=== PATIENT | female | born 1980 | race Caucasian/White ===

== ENCOUNTER → 2016-10-17 | Outpatient (CLI) | payer OTHER ==
[~2016-10-17] MED LIST: PREN-63
[2016-10-17 16:16] LABS: URINE APPEARANCE CLEAR (CLEAR); URINE BILIRUBIN NEG (NEG); URINE COLOR YELLOW; URINE EPITHELIAL CELL AUTO >30 /lpf (0-5); URINE NITRITE NEG (NEG); URINE SPECIFIC GRAVITY 1.006 (1.000-1.030); UROBILINOGEN NEG (NEG)
[2016-10-17 16:23] LABS: MANUAL MICROSCOPIC REQUIRED? NO; REVIEW REQ? NO
== END | disposition home or self-care (01) ==
LOC: C.LABSPEC 15:48
PROVIDERS: ATTEND Obstetrics & Gynecology
DX: Z34.90 Encounter for supervision of normal pregnancy, unspecified, unspecified trimester (principal)

== ENCOUNTER → 2016-10-27 | Outpatient (CLI) | payer OTHER ==
[2016-10-27 11:46] LABS: BASO % 0.3 %; BASO ABS # 0.02 K/uL (0-0.2); COMPLETE YES; EOS % 0.3 %; HEMATOCRIT 34.5 % (37-47); IG% 0.3 %; LYMPH % 21.2 %; LYMPH ABS # 1.34 K/uL (1.2-3.4); MEAN CELL VOLUME 85.6 fL (80-100); MEAN CORPUSCULAR HEMOGLOBIN 29.3 pg (25-34); MEAN CORPUSCULAR HGB CONC 34.2 g/dl (32-36); MEAN PLATELET VOLUME 9.8 fL (7.4-10.4); MONO % 6.6 %; NEUT % 71.3 %; PLATELET COUNT 278 K/uL (130-400); RED BLOOD COUNT 4.03 M/uL (4.2-5.4); WHITE BLOOD COUNT 6.33 K/uL (4.8-10.8)
== END | disposition home or self-care (01) ==
LOC: C.LAB1850 10:03
PROVIDERS: ATTEND Obstetrics & Gynecology
DX: Z34.90 Encounter for supervision of normal pregnancy, unspecified, unspecified trimester (principal)

== ENCOUNTER → 2016-10-27 | Outpatient (CLI) | payer OTHER ==
[2016-10-30 02:49] LABS: CHLAMYDIA TRACH RNA*** NOT DETECTED (NOT DETECTED); GC (NEIS GONORRHOEAE)RNA** NOT DETECTED (NOT DETECTED)
== END | disposition home or self-care (01) ==
LOC: C.LABSPEC 17:48
PROVIDERS: ATTEND Obstetrics & Gynecology
DX: Z34.90 Encounter for supervision of normal pregnancy, unspecified, unspecified trimester (principal)

== ENCOUNTER → 2016-12-16 | Outpatient (CLI) | payer OTHER ==
[2016-12-16 12:09] LABS: GTGD 50 Grams
[2016-12-19 16:11] LABS: AFP CONCENTRATION 37.6 NG/ML; AFP MULTIPLE OF MEDIAN 0.92; AFPTS GESTATIONAL AGE 16.3 WEEKS; AFPTS INSULIN DEP DIABETIC? NO; AFPTS MATERNAL WT 115 LBS; ALPHA-FETOPROTEIN RACE CAUCASIAN=W; HISTORY OF NTD NO; INHIBIN A 116 PG/ML; REPEAT SAMPLE? NO; hCG MULTIPLE OF MEDIAN 0.57
== END | disposition home or self-care (01) ==
LOC: C.LAB1850 10:02
PROVIDERS: ATTEND Obstetrics & Gynecology
DX: Z34.82 Encounter for supervision of other normal pregnancy, second trimester (principal)

== ENCOUNTER → 2017-03-08 | Outpatient (CLI) | payer OTHER ==
[2017-03-08 11:54] LABS: URINE APPEARANCE CLEAR (CLEAR); URINE BILIRUBIN NEG (NEG); URINE COLOR YELLOW; URINE EPITHELIAL CELL AUTO >30 /lpf (0-5); URINE NITRITE NEG (NEG); URINE SPECIFIC GRAVITY 1.011 (1.000-1.030); UROBILINOGEN NEG (NEG)
[2017-03-08 11:55] LABS: MANUAL MICROSCOPIC REQUIRED? NO; REVIEW REQ? NO
[2017-03-08 12:14] LABS: HEMATOCRIT 31.6 % (37-47)
[2017-03-08 14:33] LABS: GTGD 50 Grams
== END | disposition home or self-care (01) ==
LOC: C.LAB1850 09:10
PROVIDERS: ATTEND Obstetrics & Gynecology
DX: Z34.82 Encounter for supervision of other normal pregnancy, second trimester (principal)

== ENCOUNTER → 2017-05-05 | Outpatient (CLI) | payer OTHER | END | disposition home or self-care (01) | LOC: C.LABSPEC 17:40 | PROVIDERS: ATTEND Obstetrics & Gynecology | DX: Z34.83 Encounter for supervision of other normal pregnancy, third trimester (principal) ==

== ENCOUNTER 2017-05-24 13:46 | Inpatient (IN) | payer OTHER ==
[~2017-05-24] VITALS: Ht 162.6 cm; Wt 63.7 kg
[2017-05-24] MEDS ORDERED: PREN-63 (14:17)
[2017-05-24 15:04] VITALS: Ht 162.6 cm; Wt 63.7 kg
[2017-05-24] MEDS ORDERED: LACTATED RINGER'S 1000ML 1,000 ML IV SCH (16:31)
[2017-05-24] MEDS ORDERED: LACTATED RINGER'S 1000ML 1,000 ML IV PRN (16:31)
[2017-05-24 17:14] LABS: HEMATOCRIT 32.7 % (37-47); MEAN CORPUSCULAR HEMOGLOBIN 30.1 pg (25-34); MEAN CORPUSCULAR HGB CONC 34.6 g/dl (32-36); MEAN PLATELET VOLUME 9.8 fL (7.4-10.4); PLATELET COUNT 181 K/uL (130-400); RED BLOOD COUNT 3.76 M/uL (4.2-5.4); WHITE BLOOD COUNT 9.23 K/uL (4.8-10.8)
[2017-05-24] MEDS ORDERED: BUPIVACAINE 0.25% 30 ML VIAL ONE (17:16)
[2017-05-24] MEDS ORDERED: EpHEDrine SULFATE INJ 50 MG/ML AMP ONE (17:16)
[2017-05-24] MEDS ORDERED: FENTANYL 2MCG/ML ROPIV 1.25MG/ML 100ML BAG EPI ONE (17:17)
[2017-05-24] MEDS ORDERED: FENTANYL CITRATE INJ 50 MCG/1 ML 2 ML VIAL ONE (17:17)
[2017-05-24] MEDS ORDERED: NALOXONE HCL INJ 1 MG in SODIUM CHLORIDE 0.9% 1000ML 1,000 ML IV PRN ×4 (18:14)
[2017-05-24] MEDS ORDERED: LACTATED RINGER'S 1000ML 500 ML IV PRN (18:14)
[2017-05-24] MEDS ORDERED: NALBUPHINE HCL INJ 10 MG/ML AMP IV PRN (18:15)
[2017-05-24] MEDS ORDERED: DiphenhydrAMINE HCL 50 MG/ML VIAL IV PRN (18:15)
[2017-05-24] MEDS ORDERED: EpHEDrine SULFATE INJ 50 MG/ML AMP IV PRN (18:15)
[2017-05-24] MEDS ORDERED: PROMETHAZINE HCL INJ 25 MG in SODIUM CHLORIDE 0.9% 50ML 50 ML IV PRN (18:15)
[2017-05-24] MEDS ORDERED: ONDANSETRON INJ 2 MG/ML 2 ML VIAL IV PRN (18:15)
[2017-05-24] MEDS ORDERED: FENTANYL 2MCG/ML ROPIV 1.25MG/ML 100ML BAG EPI PRN (18:15)
[2017-05-24] MEDS ORDERED: NALOXONE HCL INJ 0.4 MG/1 ML VIAL/CARP IV PRN (18:15)
[2017-05-24] MEDS ORDERED: OXYTOCIN 30 UNITS/500ML NSS IV ONE (19:38)
[2017-05-24] MEDS ORDERED: ACETAMINOPHEN 325 MG TAB PO PRN (20:00)
[2017-05-24] MEDS ORDERED: DIPHTHERIA/TETANUS/PERTUSSIS 0.5 ML SYR/VIAL IM. ONE (20:00)
[2017-05-24] MEDS ORDERED: OXYTOCIN 30 UNITS/500ML NSS IV PRN (20:00)
[2017-05-24] MEDS ORDERED: BENZOCAINE 20% AER SPR 82.5 GM CAN EXT PRN (20:00)
[2017-05-24] MEDS: DOCUSATE SODIUM 100 MG CAP PO SCH (20:00)
[2017-05-24] MEDS ORDERED: LANOLIN OINT EXT PRN ×2 (20:00)
[2017-05-24] MEDS ORDERED: MISOPROSTOL 200 MCG TAB PR SCH (20:00)
[2017-05-24] MEDS ORDERED: HYDROCORTISONE ACETATE 25 MG SUPP PR PRN (20:00)
[2017-05-24] MEDS ORDERED: SUPERCREAM 0.870 % 15GM JAR EXT PRN (20:00)
[2017-05-24] MEDS ORDERED: ACETAMINOPHEN/CODEINE 300/30MG TAB PO PRN ×2 (20:00)
--- NOTE | 2017-05-24 20:04 | Vaginal Delivery Summary ---
Vaginal Delivery Summary Patient dilated to complete and pushed to deliver viable male Apgars 9, 10 via over 2nd degree perineal laceration. Mouth and nose bulb suctioned at perineum. Loose nuchal cord x 1 easily reduced at perineum. Shoulders and body delivered with ease. vigorous and crying at . Placenta delivered spontaneously and intact, 3 VC. Hemostasis not achieved with dilute pitocin and uterine massage. Therefore, bladder drained under sterile conditions for 100cc. Rectal cytotec 800mcg administered. Uterine tone improved and bleeding improved. Uterus was swept x 1 with no retained products of conception. Laceration repaired in usual fashion with 3-0 vicryl. Cervix and sulci intact. Mother and baby stable in recovery. EBL 500cc.
[2017-05-24] MEDS: OXYTOCIN INJ 20 UNITS in LACTATED RINGER'S 1000ML 1,000 ML IV SCH (20:15)
--- NOTE | 2017-05-24 21:26 | Anesthesia Procedure Note ---
Anesthesia Epidural Removal Nt Date & Time May 24, 2017 at 21:26 Vital Signs Pain Intensity: 0.0 Notes Mental Status: alert / awake / arousable, participated in evaluation Nausea / Vomiting: adequately controlled Pain: adequately controlled Airway Patency, RR, SpO2: stable & adequate BP & HR: stable & adequate Hydration State: stable & adequate Neuraxial Anesthesia: was administered Anesthetic Complications: no major complications apparent, pt satisfied with anesthetic care Epidural: removed without complications, with tip intact
[2017-05-24] MEDS: IBUPROFEN 600 MG TAB PO PRN (22:01)
[2017-05-24 23:00] VITALS: BP 121/81; PULSE 89; TEMP 37.2; O2SAT 98
[2017-05-25] MEDS: IBUPROFEN 600 MG TAB PO PRN ×3 (03:10→19:44)
[2017-05-25 03:20] VITALS: BP 106/70; PULSE 75; TEMP 37.1; O2SAT 99
[2017-05-25] MEDS: OXYTOCIN INJ 20 UNITS in LACTATED RINGER'S 1000ML 1,000 ML IV SCH (04:58)
--- NOTE | 2017-05-25 06:43 | OB/GYN Progress Note ---
PAINTER APPRENTICE Progress Note Date of Service May 25, 2017. Subjective conversation w/ patient, physical exam, chart review, lab review Ambulation: ambulating normally Voiding: no voiding problems Passing Gas: Yes Diet Tolerance: Regular Diet Lochia: Moderate Feeding Type: Breast Feeding Review of Systems Respiratory: No shortness of breath Cardiac: No chest pain Abdomen: No nausea, No vomiting Objective Vital Signs Date Time Temp Pulse Resp B/P (MAP) Pulse Ox O2 Delivery O2 Flow Rate FiO2 05/25/17 03:20 37.1 75 18 106/70 (82) 99 Room Air 05/24/17 23:00 98 Room Air 05/24/17 23:00 37.2 89 20 121/81 (94) 98 Room Air Physical Exam General Appearance: WELL-APPEARING, WD/WN, NO APPARENT DISTRESS Respiratory/Chest: lungs clear, normal breath sounds Cardiovascular: regular rate, rhythm, no gallop, no JVD Abdomen: normal bowel sounds, soft Fundus: Firm, Tender, Relation to Umbilicus (1 below U) Extremities: non-tender, no calf tenderness Laboratory Results Last 24 Hours Test 05/24/17 17:06 05/25/17 06:30 White Blood Count 9.23 K/uL Red Blood Count 3.76 M/uL Hemoglobin 11.3 g/dL Hematocrit 32.7 % Mean Corpuscular Volume 87.0 fL Mean Corpuscular Hemoglobin 30.1 pg Mean Corpuscular Hemoglobin Concent 34.6 g/dl RDW Standard Deviation 44.5 fL RDW Coefficient of Variation 14.0 % Platelet Count 181 K/uL Mean Platelet Volume 9.8 fL Assessment and Plan Post- Day Number: 1 Continue Routine Care: Pt is doing well clinically. - VS reviewed and WNL. - Hgb 11.3 - Blood type AB negative /GBS negative - Encourage ambulation, monitor and control pain with Motrin PRN, continue regular diet, monitor lochia - Continue support - Pt refused Rhogam at 28 weeks. Father blood type is NEG per pt, so Rhogam not indicated at this time. Dr. Miller PGY 1 Resident Physician Supervision Note: I was present with Dr. Rosenthal during the history and exam. I discussed the case with the resident and agree with the findings and plan as documented in the note. Any exceptions or clarifications are listed here: wants to stay until tomorrow. routine care. Documented By: Jailyn Walton Resident Tracking Resident Involvement: Resident Care Provided Care Provided: Adult [facility] Medicine
[2017-05-25 06:54] LABS: HEMATOCRIT 25.8 % (37-47)
--- NOTE | 2017-05-25 07:13 | Discharge Instructions ---
Discharge Instructions Date of Service May 25, 2017. Admission Reason for Admission: Active Labor At Term Discharge Discharge Diagnosis / Problem: Delivery Discharge Goals Goal(s): Routine recovery after delivery Medications Continue Dispensed Medications: supercream, dermaplast, tucks, lansinoh Activity Recommendations Activity Limitations: per Instructions/Follow-up section . Instructions / Follow-Up Instructions / Follow-Up ACTIVITY RECOMMENDATIONS: * Gradual return to full activity over the next 2-3 weeks. * No lifting - nothing heavier than baby over the next 2-3 weeks. * Do not engage in vigorous exercise, sexual activity or sports until cleared by your physician. * Do not drive or operate any motorized equipment until cleared by your physician. * You may shower/bathe daily. MEDICATIONS: For discomfort or pain, you may use Acetaminophen (Tylenol), Ibuprofen (Advil), or Naproxen (Aleve) following the package directions. For constipation you may use Colace following the package directions. BREAST CARE: If you are not breast feeding: * Wear a supportive bra 24 hours a day for one to two weeks. * Avoid stimulating your breasts and nipples as much as possible during the first few weeks after delivery. * When taking a shower, have the warm water hit your back, not breasts. * When your breasts feel full, apply ice packs. Usually three to four times a day helps ease the discomfort. * Take a mild pain medication (Tylenol / Motrin) when you are uncomfortable. If breast feeding: * Use breast milk to lubricate nipples. Lansinoh cream may be used for sore nipples. You do not need to remove cream prior to breast feeding. If using a different brand of cream, check the label for directions regarding removal of cream prior to nursing. * Wear a supportive bra. * If having problems with breasts or breast feeding, call a ruby on rails consultant or your health care provider. EPISIOTOMY CARE: After delivery, if you have an episiotomy (stitches), the following steps will ease discomfort and aid healing. * For the first 24 hours after delivery, place ice packs next to your episiotomy to help reduce swelling. * After the first 24 hour-period, sitz baths, either portable or in the tub, are suggested. A shower with a shower arm sprayed over the episiotomy may be comforting. * Heather care should be done after each voiding and bowel movement. Squirt warm water from a plastic bottle over the perineum (region of the body between the anus and urinary opening) and pat dry. * Use Dermoplast to ease discomfort. Shake container. [place] directly over the episiotomy. Place a Tucks on a clean sanitary pad next to your episiotomy. SPECIAL CARE INSTRUCTIONS: When you are discharged from the hospital, it is important for you to follow the instructions listed below: * During the first week at home, you should be able to care for yourself and your baby. In addition, the usual light household activities are encouraged. * Limit your activities to the way you feel. Do not try to clean the house or move furniture. Be sensible. * If you actively engage in sports and have done so up until the time of your delivery, you may resume these activities as soon as you feel able. This may take up to one month or even longer. Use good judgment. * Continue to take your vitamins for at least six weeks after the of your baby. * Your diet need not be limited unless you were on a special diet before your delivery. Breast-feeding mothers need around 2500 calories per day and at least 64-80 ounces of fluid per day (8 to 10 glasses). * You should eat foods from the four major food groups. Crash diets or fad diets are to be avoided. Eating lean meats, fresh fruits and vegetables, low-fat dairy products, high fiber foods and a regular exercise program, will help you get back to your pre- weight without putting your health at risk. * Constipation is sometimes a problem after delivery. Take a mild laxative as needed. If breast feeding, Milk of Magnesia is acceptable to use. You may use a suppository or Fleets enema if no episiotomy. * A daily shower or tub bath is suggested. Be sure to thoroughly and gently dry the perineum. * A bloody vaginal discharge will usually continue until around four weeks post . A small amount of bleeding may continue for as long as six weeks. Vaginal discharge changes from the bright red bleeding after delivery to pink then brownish and finally yellowish-pink before becoming white and disappearing. * Bleeding may increase with activity. Your first period may come in 4-8 weeks. If you are breast feeding, your period may be delayed even longer. * Briar (sex) can begin whenever both you and your partner feel comfortable and do not have any form of genital infection. It is recommended that you wait at least six weeks for internal and external healing to occur. If you have questions, please talk to your health care practitioner. A condom should be used to prevent infection and . * Foreplay, gentle intercourse and lubrication is very important the first several times to prevent pain. A water-based lubricant such as K-Y jelly or Astroglide may be used. * If you have RH negative blood and your baby is RH positive, you will receive RHOGAM by injection prior to discharge. The nurse will give you a card to keep with you that has the date and place that you received RHOGAM after delivery. * During your care, you had a Rubella screen done to check for the presence of rubella antibodies in your blood. If your test was negative, you will receive a Rubella vaccine prior to discharge. This vaccine may cause a fever, soreness at the injection site and flu-like symptoms. If these symptoms persist, notify your health care practitioner. is not advised for one month after a Rubella vaccine. * Verbalizes understanding of car seat law as reviewed with patient nursing. * Car Seat hand-out given and reviewed with patient by nursing. * Shaken baby information reviewed with patient by nursing. Call you doctor if: * Heavy bleeding (saturating several pads an hour) or passing clots the size of your fist. * A fever >101 degrees F (38.3 degrees C) on two occasions four hours apart and /or chills. * Unusual pain in the pelvic or vaginal areas. * "Baby Blues" lasting longer than two weeks. If you have any questions or concerns, call your health care practitioner at . FOLLOW UP VISIT: * Please call the office at to schedule a 6 week examination. It is important you keep this appointment. It is important for you to make arrangements for either yearly or twice yearly check-ups thereafter. Current Hospital Diet Patient's current hospital diet: Regular OB Diet Discharge Diet Recommended Diet: Regular Diet Pending Studies Studies pending at discharge: no Medical Emergencies . Who to Call and When: Medical Emergencies: If at any time you feel your situation is an emergency, please call 911 immediately. . Non-Emergent Contact Non-Emergency issues call your: Primary Care Provider . . "Provider Documentation" section prepared by Leny Miller. . VTE Core Measure Inpt VTE Proph given/why not?: Treatment not indicated Resident Tracking Resident Involvement: Resident Care Provided Care Provided: Adult Hospital Medicine
[2017-05-25] MEDS: DOCUSATE SODIUM 100 MG CAP PO SCH ×2 (08:09→19:44)
[2017-05-25 08:20] VITALS: BP 118/76; PULSE 75; TEMP 36.6
[2017-05-25 12:45] VITALS: BP 108/70; PULSE 69; TEMP 36.5
[2017-05-25 16:00] VITALS: BP 117/76; PULSE 69; TEMP 36.9; O2SAT 99
[2017-05-25 19:15] VITALS: BP 106/67; PULSE 69; TEMP 36.9; O2SAT 99
[2017-05-26 00:05] VITALS: BP 102/64; PULSE 78; TEMP 36.8; O2SAT 97
[2017-05-26] MEDS: IBUPROFEN 600 MG TAB PO PRN (05:47)
[2017-05-26] MEDS: DOCUSATE SODIUM 100 MG CAP PO SCH (07:28)
--- NOTE | 2017-05-26 07:44 | OB/GYN Progress Note ---
EXERCISE PHYSIOLOGIST CERTIFIED Progress Note Date of Service May 26, 2017. Subjective conversation w/ patient, physical exam, chart review, lab review Ambulation: ambulating normally Voiding: no voiding problems Passing Gas: Yes Diet Tolerance: Regular Diet Lochia: Moderate Feeding Type: Breast Feeding Pain: controlled Review of Systems Respiratory: No shortness of breath Cardiac: No chest pain Abdomen: No nausea, No vomiting Female : No dysuria Objective Vital Signs Date Time Temp Pulse Resp B/P (MAP) Pulse Ox O2 Delivery O2 Flow Rate FiO2 05/26/17 00:05 97 Room Air 05/26/17 00:05 36.8 78 20 102/64 (77) 97 Room Air 05/25/17 19:15 36.9 69 16 106/67 (80) 99 Room Air 05/25/17 16:00 99 Room Air 05/25/17 16:00 36.9 69 20 117/76 (90) 99 Room Air 05/25/17 12:45 36.5 69 20 108/70 (83) 05/25/17 08:20 36.6 75 16 118/76 (90) Physical Exam General Appearance: WELL-APPEARING, WD/WN, NO APPARENT DISTRESS Respiratory/Chest: lungs clear, no respiratory distress Cardiovascular: regular rate, rhythm Abdomen: normal bowel sounds, soft Fundus: Firm, Tender (appropriately tender uterus), Relation to Umbilicus (2 below U) Extremities: non-tender, no calf tenderness Laboratory Results Last 24 Hours Test 05/25/17 16:17 Bedside Glucose 105 mg/dl Assessment and Plan Post- Day Number: 2 Continue Routine Care: - Vital Signs reviewed and WNL. - Blood Type: AB-, GBS-, Rubella Immune. is Rh-, no indication for rhogam at this time. - Pt is doing well clinically. - Encourage Ambulation, Monitor and Control pain with Motrin PRN, Resume regular diet, Monitor Lochia - Encourage Breast Feeding. - Pt counselled on discharge instructions FAROOQ MILLER PGY1 FMR Resident Physician Supervision Note: I interviewed and examined the patient. Discussed with Dr. Miller and agree with findings and plan as documented in the note. Any exceptions or clarifications are listed here: Nursing shows me a small bruise on the left buttock. Not related to her perineum, not connected either. Reassured patient. Plan d/c. INstructions given. Documented By: Drea Lamb Resident Tracking Resident Involvement: Resident Care Provided Care Provided: OB Delivery
[2017-05-26 08:00] VITALS: BP 101/66; PULSE 87; TEMP 36.9
[2017-05-26 13:32] VITALS: BP_DIAS 66; PULSE 87; TEMP 36.9
== END 2017-05-26 13:00 | disposition home or self-care (01) | DRG 775 ==
LOC: C.OPB 13:46 → C.LD 13:47 → C.OPB 16:57 → C.OBG 05-25 01:20
PROVIDERS: ADMIT Obstetrics & Gynecology; ATTEND Obstetrics & Gynecology
PROC: 0KQM0ZZ Repair Perineum Muscle, Open Approach (ICD-10-PCS; principal; 2017-05-24)
PROC: 10E0XZZ Delivery of Products of Conception, External Approach (ICD-10-PCS; principal; 2017-05-24)
DX: O36.0930 Maternal care for other rhesus isoimmunization, third trimester, not applicable or unspecified (principal); O09.893 Supervision of other high risk pregnancies, third trimester; O69.81X0 Labor and delivery complicated by cord around neck, without compression, not applicable or unspecified; O70.1 Second degree perineal laceration during delivery; Z3A.39 39 weeks gestation of pregnancy; Z37.0 Single live birth

== ENCOUNTER → 2017-07-10 | Outpatient (CLI) | payer OTHER | END | disposition home or self-care (01) | LOC: C.PAPS 08:58 | PROVIDERS: ATTEND Obstetrics & Gynecology | DX: Z12.4 Encounter for screening for malignant neoplasm of cervix (principal) ==

== ENCOUNTER 2019-08-05 18:23 | Inpatient (IN) ==
[2019-08-05] MEDS ORDERED: LACTATED RINGER'S 1,000 ML IV PRN (22:44)
[2019-08-05] MEDS ORDERED: OXYTOCIN 30 UNITS/500 ML BAG IV PRN (22:44)
[2019-08-05 23:05] LABS: Hematocrit (blood only) 32.8 % (37-47); Hemoglobin 11.2 g/dL (12.0-16.0); Mean Corpuscular Hemoglobin 29.7 pg (25-34); Mean Platelet Volume 9.4 fL (7.4-10.4); Platelet Count 172 K/uL (130-400); RDW Coefficient of Variation 14.7 % (11.5-14.5); RDW Standard Deviation 46.5 fL (36.4-46.3); Red Blood Count 3.77 M/uL (4.2-5.4); White Blood Count 10.54 K/uL (4.8-10.8)
[2019-08-05 23:22] LABS: Mean Corpuscular Hgb Conc 34.1 g/dL (32-36)
[2019-08-05] MEDS ORDERED: CALCIUM CARBONATE 500 MG CHEWABLE TAB PO ONE (23:23)
[2019-08-05] MEDS ORDERED: fentaNYL citrate 100 MCG/2 ML VIAL ONE (23:42)
[2019-08-05] MEDS ORDERED: BUPIVACAINE 0.25% 30 ML VIAL ONE (23:42)
[2019-08-05] MEDS ORDERED: ePHEDrine sulfate 50 MG/ML AMP ONE (23:42)
[2019-08-05] MEDS ORDERED: fentaNYL 2MCG/ML ROPIV 1.25MG/ML 100 ML BAG EPI ONE (23:43)
[2019-08-06] MEDS ORDERED: DiphenhydrAMINE HCL 50 MG/ML VIAL IV PRN (00:32)
[2019-08-06] MEDS ORDERED: fentaNYL 2MCG/ML ROPIV 1.25MG/ML 100 ML BAG EPI PRN (00:32)
[2019-08-06] MEDS ORDERED: ePHEDrine sulfate 50 MG/ML AMP IV PRN (00:32)
[2019-08-06] MEDS ORDERED: NALOXONE HCL 1 MG in SODIUM CHLORIDE 0.9% 1000ML 1,000 ML IV PRN (00:32)
[2019-08-06] MEDS ORDERED: NALBUPHINE HCL INJ 10 MG/ML AMP IV PRN (00:32)
[2019-08-06] MEDS ORDERED: NALOXONE HCL 0.4 MG/1 ML VIAL/CARP IV PRN (00:32)
--- NOTE | 2019-08-06 00:37 | History & Physical Report ---
Date of Service August 06, 2019 Assessment & Plan (1) Supervision of elderly multigravida: (2) Rh negative status during : (3) Active labor at term: admit, iv, labs. epidural, will see how arom augments labor. History of Present Illness Chief Complaint: regular ctx Primary Care Provider: Charlette Abraham MD 38yo at 39 wks ega with above cc. Was initially thinking she was leaking fluid but that was not confirmed. Contractions increased with time and cervix changed from 3-4cm to 5-6cm and admitted in labor. Desired epidural. No rom. c/b 1. ama , low risk panorama 2. rh neg, spouse rh neg, does not accept rhogam Labs rh neg, ri, gbs neg obh: x 2 gynh: no stds, nl paps pmh: neg psh: wisdom teeth Allergies Allergy/AdvReac Type Severity Reaction Status Date / Time erythromycin base AdvReac Intermediate RASH Verified 08/01/19 09:43 Home Medications Home Medications Medication Instructions Recorded Confirmed Type 1 tab PO DAILY 05/03/19 08/05/19 History vitamin,calcium,trawrale-acqd-vecve acid tablet hydrocortisone acetate 25 mg 25 mg WI BID #1 ea 08/01/19 08/05/19 Rx rectal suppository Patient History Medical History History of placenta previa Surgical History History of wisdom tooth extraction Family History Daughter [place]-McDermid [id number] deletion syndrome Social History Preferred Language: [place] Communication Ability: Effective Beliefs That Will Affect Care: None marital status: Current Living Situation: Family Other Information That Helps Us Care for You: No Feels Safe at Home: Yes Safety Concerns: Feels Safe At This Time Smoking Status: Never smoker Do You Dip or Chew Tobacco: No ; Second Hand Exposure: No ; Hx Alcohol Use: No Hx Substance Use: No Physical Exam Constitutional: WD/WN, vitals as above Gastrointestinal (Abdomen): Percussion/Palpation: abdomen soft (gravid); abdomen nontender Neurologic: grossly normal Psychiatric: A+Ox3, euthymic affect Genitourinary: Manual OB Exam: + cervical dilation 5 cm, + cervical effacement 70%, + station -2 and + amniotic fluid (clear arom) OB Exam Monitor Tracing: + external FHT monitor used (130 mod variability, reactive), + external uterine monitor used (q3), + category I and + normal FHT variability Results & Data Vital Signs (Past 12 Hours) Vital Signs Temp Pulse Resp BP Pulse Ox 08/06/19 00:32 110 H 120/67 08/06/19 00:31 104 H 112/66 96 08/06/19 00:29 104 H 120/75 08/06/19 00:27 103 H 119/72 08/06/19 00:26 105 H 97 08/06/19 00:25 102 H 121/72 08/06/19 00:23 100 H 124/74 08/06/19 00:21 109 H 118/72 96 08/06/19 00:19 100 H 120/73 08/06/19 00:17 96 H 124/72 08/06/19 00:16 110 H 97 08/06/19 00:11 118 H 96 08/06/19 00:06 103 H 96 08/06/19 00:01 95 H 97 08/05/19 23:17 93 H 118/74 08/05/19 23:01 98.6 F 18 08/05/19 19:01 18 08/05/19 18:54 91 H 132/82 08/05/19 18:35 98.4 F 20
--- NOTE | 2019-08-06 00:45 | Anesthesiology Consultation ---
Date of Service August 06, 2019 Assessment & Plan Chart Review Chart Review: Acceptable Risk for Labor Epidural Consults Requested none History Height/Weight Height: 5 ft 5 in Weight: 68.946 kg Allergies Allergy/AdvReac Type Severity Reaction Status Date / Time erythromycin base AdvReac Intermediate RASH Verified 08/01/19 09:43 Medications Home Medications Medication Instructions Recorded Confirmed Last Taken 1 tab PO DAILY 05/03/19 08/05/19 08/04/19 15:00 vitamin,calcium,paogzqvd-btzo-wsoic acid tablet hydrocortisone acetate 25 mg 25 mg [place] BID #1 ea 08/01/19 08/05/19 08/04/19 15:00 rectal suppository Active Medications Generic Name Dose Route Start Last Admin Trade Name Freq PRN Reason Stop Dose Admin Lactated Ringer's 1,000 mls @ 125 mls/hr 08/05/19 22:44 08/05/19 23:07 Lr IV 08/07/19 22:43 999 mls/hr .Q8H PRN Administration L&D Protocol Protocol Past Medical History Medical History History of placenta previa Past Family History Family History Daughter [place]-McDermid 22q13 deletion syndrome Past Surgical History Surgical History History of wisdom tooth extraction Social History Smoking Status: Never smoker Do You Dip or Chew Tobacco: No Hx Alcohol Use: No Hx Substance Use: No Physical Exam Vital Signs Last Vital Signs Temp 37.0 C 08/05/19 23:01 Pulse 96 H 08/06/19 00:42 Resp 18 08/05/19 23:01 BP 118/76 08/06/19 00:42 Pulse Ox 97 08/06/19 00:41 Testing Laboratory Results 08/05/19 22:56
[2019-08-06] MEDS ORDERED: IBUPROFEN 600 MG TAB PO ONE (03:18)
[2019-08-06] MEDS ORDERED: OXYTOCIN 20 UNITS in LACTATED RINGER'S 1,000 ML IV PRN (04:43)
[2019-08-06] MEDS ORDERED: BENZOCAINE 20% AER SPR 82.5 GM CAN EXT PRN (04:45)
[2019-08-06] MEDS ORDERED: HYDROCORTISONE ACETATE 25 MG SUPP PR PRN (04:45)
[2019-08-06] MEDS ORDERED: BISACODYL 10 MG SUPP PR PRN ×2 (04:45→05:28)
[2019-08-06] MEDS ORDERED: SUPERCREAM 0.870% 15 GM JAR EXT PRN (04:45)
[2019-08-06] MEDS ORDERED: ACETAMINOPHEN 325 MG TAB PO PRN (04:45)
[2019-08-06] MEDS ORDERED: OXYCODONE/ACETAMINOPHEN 5mg/325mg TAB PO PRN (04:45)
[2019-08-06 06:10] LABS: Hematocrit (blood only) 30.5 % (37-47); Hemoglobin 10.4 g/dL (12.0-16.0)
[2019-08-06] MEDS: PRENATAL VITAMIN 1 TAB PO SCH (07:32)
[2019-08-06] MEDS: DOCUSATE SODIUM 100 MG CAP PO SCH ×2 (07:32→20:04)
[2019-08-06] MEDS: IBUPROFEN 600 MG TAB PO PRN ×3 (07:32→20:03)
--- NOTE | 2019-08-06 11:40 | Anesthesia Procedure Note ---
Date of Service August 06, 2019 Anesthesia Post Epidural Note Vital Signs Vital Signs: Temp Pulse Resp BP Pulse Ox 98.2 F 83 18 111/69 96 08/06/19 08:00 08/06/19 08:00 08/06/19 08:00 08/06/19 08:00 08/06/19 08:00 Pain Intensity Bilateral Abdomen: Pain Intensity: 4 Notes Mental Status: alert / awake / arousable and participated in evaluation Nausea / Vomiting: adequately controlled Pain: adequately controlled Airway Patency, RR, SpO2: stable & adequate BP & HR: stable & adequate Hydration State: stable & adequate Neuraxial Anesthesia: was administered and sensory block is resolving Anesthetic Complications: no major complications apparent and Pt Satisfied with anesthetic care Epidural: Removed without complications and With tip intact
[2019-08-07] MEDS: IBUPROFEN 600 MG TAB PO PRN ×2 (05:38→09:27)
--- NOTE | 2019-08-07 06:41 | Obstetrical Progress Note ---
Date of Service <Jim Celeste DO - Last Filed: 08/07/19 07:38> August 07, 2019 Assessment & Plan <DO Margarito Johnson Last Filed: 08/07/19 07:38> (1) : -PPD#1 -Vitals reviewed, WNL (Tmax 36.9) - GBS -, Blood Type AB- - Clinically stable. - Feels well today. Eating well, voiding well, ambulating well. - Pain well controlled. - Routine post- care - After discharge will have [address] Walton. Day #:: 1 Subjective <Jim Celeste DO - Last Filed: 08/07/19 07:38> Ambulation: ambulating normally Voiding: no voiding problems Passing Gas:: Yes Diet Tolerance:: regular diet Lochia:: Moderate Feeding Type:: breast feeding Current Pain Level(1-10): 2 (improves with analgesics) Patient is a 38 PPD#1. Patient states that she is feeling well today and that her pain is well controlled. She has no other complaints at this time. Constitutional: no fever and no chills Respiratory: no cough, no dyspnea and no wheezing Cardiovascular: no chest pain, no dyspnea, no palpitations, no edema and no calf pain Breast: no breast pain Gastrointestinal: no abdominal pain, no nausea and no vomiting Genitourinary (female): no dysuria and no difficulty urinating Neurologic: no headache(s) Physical Exam <DO Margarito Johnson Last Filed: 08/07/19 07:38> Constitutional WD/WN, vitals as above Respiratory normal respiratory effort, lungs clear to auscultation Cardiovascular Rate/Rhythm: regular rate and regular rhythm Heart Sounds: normal S1 and normal S2; no click, no gallop, no murmur and no cardiac rub Extremities: + edema (+1); no calf tenderness Gastrointestinal (Abdomen) Inspection/Auscultation: abdomen normal to inspection and normal bowel sounds Percussion/Palpation: abdomen soft; abdomen nontender Genitourinary OB Exam Abdomen: + fundal height Fundus: + firm and + relation to umbilicus (2cm below ); not tender and not boggy Results & Data <DO Margarito Johnson Last Filed: 08/07/19 07:38> Vital Signs (Past 12 Hours) Vital Signs Temp Pulse Resp BP Pulse Ox 08/06/19 23:23 36.7 C 82 18 107/66 08/06/19 19:50 36.7 C 82 18 106/69 97 <Conrad Taylor Jr, MD, FACOG - Last Filed: 08/07/19 07:41> Co-Signing Physician Notes Resident Physician Supervision Note: I was present with Dr. Celeste during the history and exam. I discussed the case with the resident and agree with the findings and plan as documented in the note. Any exceptions or clarifications are listed here: Patient desires discharge, instructions given. F/U in 6 weeks Documented By: Conrad Taylor Jr, MD, FACOG Resident Activity Tracking <Jim Celeste DO - Last Filed: 08/07/19 07:38> Resident Involvement: Resident Care Provided Care Provided: OB Delivery
[2019-08-07] MEDS: PRENATAL VITAMIN 1 TAB PO SCH (08:50)
[2019-08-07] MEDS: DOCUSATE SODIUM 100 MG CAP PO SCH (08:50)
[2019-08-07] MEDS ORDERED: BISACODYL 5 MG TABEC PO SCH (20:00)
== END 2019-08-07 10:25 | disposition home or self-care (01) | DRG 806 ==
LOC: 4S1 18:23 → OPB 18:23 → 4S1 22:45 → 4S2 08-06 05:37